=== PATIENT | female | born 1985 | race African-American/Black ===

== ENCOUNTER 2021-02-08 08:41 | Emergency (ER) | payer OTHER, SELFPAY ==
--- NOTE | ~2021-02-08 | CT_ITS ---
EXAMINATION: CT cervical spine wo con DATE: 02/08/2021 10:24 INDICATION: Neck pain TECHNIQUE: Computed tomography (CT) of the cervical spine was performed without intravenous contrast. The dose-length product (DLP) was 472.04 mGy-cm. Automated exposure control and iterative reconstruc tion technique were employed. COMPARISON: None FINDINGS: There is no fracture, dislocation, or subluxation. The vertebral body heights, alignment, a nd intervertebral disc spaces are normal. The paravertebral soft tissues are unremarkable. The odonto id is intact. IMPRESSION: 1. No acute osseous abnormality. Reviewed, dictated and finalized at location A.
--- NOTE | ~2021-02-08 | CT_ITS ---
EXAMINATION: CT chest abdomen pelvis w con DATE: 02/08/2021 10:24 INDICATION: Left-sided chest and abdominal pain TECHNIQUE: Transaxial computed tomographic images of the chest, abdomen, and pelvis were obtained aft er the administration of 100 cc of Omnipaque 350 intravenous contrast. The dose-length product (DLP) was 1426.66 mGy-cm. Automated exposure control and iterative reconstruction technique were employed. COMPARISON: None FINDINGS: CHEST CT: There is mild atelectasis. No pleural effusion or pneumothorax is identified. No pathologically enlar ged thoracic lymph nodes are identified. The heart size is normal. There is no aneurysm or dissection of the thoracic aorta. A few scattered pulmonary nodules measure up to 3 mm. There is mild thoracic spondylosis. ABDOMEN/PELVIS CT: A 10 mm area of subcapsular enhancement in the left hepatic A reflect a flash filling hemangioma or f ocal nodular hyperplasia. Smaller hypoattenuating lesions of the liver measuring up to 7 mm are too s mall to characterize but likely represent cysts. The spleen, pancreas, gallbladder, and adrenal gland s are normal. The kidneys are unremarkable. There is no aneurysm or dissection of the abdominal aorta . No pathologically enlarged abdominal or pelvic lymph nodes are identified. There is no free intrape ritoneal gas or evidence of bowel obstruction. IMPRESSION: 1. No acute abnormality of the chest, abdomen, or pelvis. 2. Scattered pulmonary nodules measuring up to 3 mm, likely infectious or inflammatory. Consider foll ow-up CT in 12 months. Reviewed, dictated and finalized at location A. IMPRESSION: 1. No acute abnormality of the chest, abdomen, or pelvis. 2. Scattered pulmonary nodules measuring up to 3 mm, likely infectious or infla mmatory. Consider follow-up CT in 12 months.
--- NOTE | ~2021-02-08 | CT_ITS ---
EXAMINATION: CT brain wo con INDICATION: Head injury COMPARISON: None TECHNIQUE: Standard unenhanced head CT. The dose-length product (DLP) was 605.33 mGy-cm. The mA was a djusted according to patient size. Iterative reconstruction technique was employed. FINDINGS: There is no intracranial hemorrhage, acute infarction, or abnormal mass lesion. The ventric les are normal. There is no abnormal mass effect or midline shift. The siddiqui-white matter differentiat ion is normal. The basal cisterns are patent. The orbits are normal. The paranasal sinuses, mastoids and calvarium are normal. IMPRESSION: 1. No acute intracranial abnormality. Reviewed, dictated and finalized at location A.
[2021-02-08 08:41] VITALS: BP 141/93; PULSE 95; RESP 14; TEMP 36.2; O2SAT 99
[2021-02-08] MEDS: KETOROLAC (*BKC) 60 MG/2 ML VIAL IM (09:05)
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
[2021-02-08 09:26] LABS: Basophils Absolute Auto 0.03 K/mm3 (0.00-0.10); Basophils Percent Auto 0.3 % (0.0-1.0); Eosinophils Absolute Auto 0.03 K/mm3 (0.02-0.50); Eosinophils Percent Auto 0.3 % (1.0-6.0); Hematocrit 41.2 % (35.0-49.0); Hemoglobin 13.7 g/dL (12.0-15.0); Immature Granulocyte Absolute 0.04 K/mm3 (0.00-0.00); Immature Granulocyte Percent A 0.4 % (0.0-0.0); Lymphocytes Percent Auto 30.1 % (18.0-42.0); Mean Corpuscular HGB Conc 33.3 g/dL (32.0-36.0); Mean Corpuscular Hemoglobin 31.1 pg (27.0-31.0); Mean Corpuscular Volume 93.4 fL (78.0-102.0); Monocytes Absolute Auto 0.43 K/mm3 (0.10-0.90); Monocytes Percent Auto 4.8 % (2.0-11.0); Neutrophils Absolute Auto 5.7 K/mm3 (1.7-7.2); Neutrophils Percent Auto 64.1 % (50.0-70.0); Platelet Count Result 268 K/mm3 (150-420); Red Blood Count 4.41 M/mm3 (4.20-5.40); Red Cell Distribution Width 11.9 % (11.6-14.4)
[2021-02-08 09:43] LABS: Alanine Aminotransferase 25 U/L (14-59); Albumin Level 3.7 g/dL (3.4-5.0); Alkaline Phosphatase 68 U/L (46-116); Anion Gap 10 mmol/L (8-16); Aspartate Amino Transferase 13 U/L (15-37); Bilirubin,Total 0.4 mg/dL (0.00-1.00); Blood Urea Nitrogen 6 mg/dL (7-18); Calcium 8.7 mg/dL (8.5-10.1); Carbon Dioxide 27 mmol/L (21-32); Chloride 104 mmol/L (98-108); Estimated CRCL calculation 84 ml/min; Estimated Glomerular Filt Rate > 60; Glucose 101 mg/dL (70-99); Osmolality Calculated 289 mOsm/kg (285-295); Potassium 3.5 mmol/L (3.5-5.1); Sodium 141 mmol/L (136-145); Total Protein 7.5 g/dL (6.4-8.2)
[2021-02-08] MEDS: SODIUM CHLORIDE 0.9% IV 1,000 ML 150 ML IV CONT (10:18)
--- NOTE | 2021-02-08 10:58 | PC.NURSE ---
C-COLLAR REMOVED DIRECTED BY ERP
[2021-02-08 11:22] VITALS: BP 140/94; PULSE 83; RESP 14; O2SAT 100
--- NOTE | 2021-02-08 11:53 | PC.NURSE ---
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 PT ALSO STATES THE PHYSICIAN DID NOT EXPLAIN DIAGNOSIS AND CT SCAN RESULTS TO HER. PT IS UNHAPPY WITH ER EXPERIENCE. RN ATTEMPTS TO CALM PATIENT AND EXPLAIN DISCHARGE INSTRUCTIONS.
== END 2021-02-08 11:53 | disposition home or self-care (01) ==
PROVIDERS: Emergency Provider Emergency Medicine
DX: R07.89 Other chest pain (principal); S13.4XXA Sprain of ligaments of cervical spine, initial encounter; V89.2XXA Person injured in unspecified motor-vehicle accident, traffic, initial encounter
CPT/HCPCS: 36415; 70450; 71260; 72125; 74177; 80053; 85025; 96361; 96372; 99283; 99284; J1885; J7030; Q9967